=== PATIENT | female | born 1945 | race Caucasian/White ===

== ENCOUNTER → 2021-04-18 | Outpatient (CLI) | payer MEDICARE, OTHER ==
[2021-04-19 08:14] LABS: RHEUMATOID ARTHRITIS FACTOR 11.4 IU/mL (0.0-13.9)
== END ==
LOC: LAB 13:27
PROVIDERS: Nurse Practitioner Family
DX: M79.642 Pain in left hand (principal); M79.641 Pain in right hand; M25.562 Pain in left knee; M11.262 Other chondrocalcinosis, left knee; M17.12 Unilateral primary osteoarthritis, left knee
CPT/HCPCS: 36415; 73130; 73560; 83520; 85652; 86140; 86200; 86431